=== PATIENT | female | born 1970 | race Caucasian/White ===

== ENCOUNTER → 2017-09-10 | Outpatient (CLI) | payer OTHER ==
[~2017-09-10] MED LIST: FURO1TAB93 PO; GLUCTAB PO; LEVO50TA4 PO; LORTS PO; METO50TA PO; OMEP20CA5 PO; PHEN12.5 PR; VENTAER INH
[2017-09-10 09:07] LABS: AUTOMATED NEUTROPHIL # 3.4 TH/MM3 (1.8-7.7); BASOPHIL % 0.5 % (0.0-2.0); EOSINOPHIL % 0.8 % (0.0-4.0); HEMATOCRIT 41.8 % (35.0-46.0); HEMO FLAGS DIFF FINAL; LYMPH % 31.6 % (9.0-44.0); LYMPHOCYTE # 1.7 TH/MM3 (1.0-4.8); MEAN CELL VOLUME 92.5 FL (80.0-100.0); MEAN CORPUSCULAR HEMOGLOBIN 30.8 PG (27.0-34.0); MEAN CORPUSCULAR HGB CONC 33.3 % (32.0-36.0); MONO % 6.2 % (0.0-8.0); NEUT % 60.9 % (16.0-70.0); PLATELET COUNT 245 TH/MM3 (150-450); RED BLOOD COUNT 4.52 MIL/MM3 (4.00-5.30); RED CELL DISTRIBUTION WIDTH 13.9 % (11.6-17.2); WHITE BLOOD COUNT 5.5 TH/MM3 (4.0-11.0)
[2017-09-10 09:15] LABS: ANION GAP 8 MEQ/L (5-15); AST (GOT) 17 U/L (15-37); BICARBONATE 25.5 MEQ/L (21.0-32.0); BLOOD UREA NITROGEN 15 MG/DL (7-18); CHLORIDE 104 MEQ/L (98-107); GLOMERULAR FILTRATION RATE 79 ML/MIN (>89); GLUCOSE,FASTING 129 MG/DL (74-99); MAGNESIUM 1.8 MG/DL (1.5-2.5); SODIUM (NA) 137 MEQ/L (136-145)
[2017-09-10 09:42] LABS: ALKALINE PHOSPHATASE 76 U/L (45-117); ALT (GPT) 32 U/L (10-53); FERRITIN 16 NG/ML (8-252); HDL CHOLESTEROL 74.9 MG/DL (40.0-60.0); LDL CHOLESTEROL 71 MG/DL (0-99); TOTAL BILIRUBIN ADULT 0.4 MG/DL (0.2-1.0); TRANSFERRIN IRON PROFILE 324 MG/DL (200-360)
[2017-09-10 16:50] LABS: HEMOGLOBIN A1b 1.2 %; HEMOGLOBIN Ao 83.4 %; HEMOGLOBIN F 1.1 %; HEMOGLOBIN LA1C 2.2 %; HEMOGLOBIN P3 3.9 %
== END ==
LOC: CLAB 07:13
PROVIDERS: ATTEND Nurse Practitioner
DX: R74.9 Abnormal serum enzyme level, unspecified (principal); R94.6 Abnormal results of thyroid function studies; E11.65 Type 2 diabetes mellitus with hyperglycemia; I10 Essential (primary) hypertension; E05.90 Thyrotoxicosis, unspecified without thyrotoxic crisis or storm; E03.9 Hypothyroidism, unspecified; E55.9 Vitamin D deficiency, unspecified; Z98.84 Bariatric surgery status
CPT/HCPCS: 36415; 80053; 80061; 82306; 82607; 82728; 82746; 83036; 83540; 83550; 83735; 83970; 84100; 84425; 84443; 84590; 85025